=== PATIENT | female | born 1955 | race Caucasian/White ===

== ENCOUNTER → 2018-05-30 10:52 | Outpatient (CLI) | payer OTHER, SELFPAY ==
--- NOTE | 2018-05-30 10:54 | MM_ITS ---
MM Dig screening mamm BI w/CAD ORDERING PHYSICIAN : Robert Juarez MD PATIENT AGE: 62 years GENDER: Female COMPARISON: July 2014, March 2017, right mammogram August 2014 INDICATION: ITS.REASON: SCREENING. Routine screening. No hormones. No new complaints.. Family history. Mother breast cancer in her 60s. Paternal aunt with breast cancer. Half sister with breast cancer in her 50s TECHNIQUE: Standard CC and MLO images were obtained. R2 CAD reviewed. FINDINGS: Moderate Dense but fairly homogeneous tissue bilaterally similar to previous studies. No dominant mass nor suspicious calcifications. No significant interval change . CAD computer review highlights no focal areas of concern either. Bilateral follow-up in one year recommended and adequate ---IMPRESSION: ---- . Stable bilateral mammogram with no significant new findings. . No areas of concern Bilateral follow-up in one year recommended. BI-RADS Category: 2 Benign Finding(s) RECOMMENDED FOLLOW-UP: 1YR 1 YEAR FOLLOW-UP (A letter has been sent to the patient regarding results of the study.)
== END ==
PROVIDERS: PCP Internal Medicine Adolescent Medicine; Visit Provider Internal Medicine Adolescent Medicine
DX: Z12.31 Encounter for screening mammogram for malignant neoplasm of breast (principal)
CPT/HCPCS: 77067

== ENCOUNTER → 2018-06-03 14:46 | Outpatient (POV) | payer OTHER, SELFPAY | PROVIDERS: Visit Provider Dermatology | DX: Z00.00 Encounter for general adult medical examination without abnormal findings (principal) ==

== ENCOUNTER → 2019-06-01 11:01 | Outpatient (CLI) | payer OTHER, SELFPAY ==
--- NOTE | 2019-06-01 11:04 | MM_ITS ---
PROCEDURE: MM DIG SCREENING MAMM BI W/CAD Patient Age:63Y CLINICAL INDICATION: SCREENING no hormones. No new complaints. Positive family history.: Mother with breast cancer in her 60s. Paternal aunt with breast cancer ?Age. Half-sister with breast cancer in her 50s COMPARISON: DMSB DIG MAMM-SCREEN MICHELET from 07/26/2014 DMDXUAVR DIG MAMM-DX UNI ADD VIEWS-RT from 09/14/2014 DMSB DIG MAMM-SCREEN MICHELET W/CAD from 04/08/2017 [facility] MM Dig screening mamm BI w/CAD from 05/30/2018 TECHNIQUE: Standard CC and MLO images were obtained. R2 CAD reviewed. FINDINGS: Moderate breast density bilaterally No new dominant or suspicious mass. No suspicious calcifications Right breast: No new areas of significant can't concern. Mild asymmetric density towards superior right breast stable on MLO views dating back to 2014. CC view stable as well Left breast. No significant new areas of concern identified. Stable left breast. Bilateral follow-up 1 year recommended IMPRESSION: Stable bilateral mammogram. Bilateral follow-up 1 year recommended Moderate breast density BI-RAD Category: 2 Benign Finding(s) FOLLOW-UP: 1YR 1 Year Follow-up (A letter has been sent to the patient regarding results of the study.) Dictated by: Tin Chua MD 06/04/2019 09:39 Electronically signed by Tin Chua MD in [place] 06/04/2019 09:39
== END ==
PROVIDERS: PCP Internal Medicine Adolescent Medicine; Visit Provider Internal Medicine Adolescent Medicine
DX: Z12.31 Encounter for screening mammogram for malignant neoplasm of breast (principal)
CPT/HCPCS: 77067

== ENCOUNTER → 2020-04-20 12:02 | Outpatient (CLI) | payer MEDICARE, OTHER, SELFPAY ==
[2020-04-20 19:34] LABS: Coronavirus 19 IgG Antibody Negative (Negative); Coronavirus 19 IgM Antibody Negative (Negative)
== END ==
PROVIDERS: Visit Provider Internal Medicine Gastroenterology
DX: Z01.818 Encounter for other preprocedural examination (principal); K21.9 Gastro-esophageal reflux disease without esophagitis; Z13.810 Encounter for screening for upper gastrointestinal disorder
CPT/HCPCS: 36415; 86328

== ENCOUNTER 2020-04-22 08:54 | Day surgery (SDC) | payer MEDICARE, OTHER, SELFPAY ==
[2020-04-18 09:05] VITALS: BMI 20.3
[2020-04-22] VITALS (7 sets, daily range): BP systolic 128–150; BP diastolic 71–97; PULSE 57–86; RESP 16–18; TEMP 36.2–36.6; O2SAT 96–99
--- NOTE | 2020-04-22 10:20 | HMH.ANESCL ---
[facility] Anesthesia Checklist - Patient Identification Patient Identification: Arm Band, Verbal (Name & ) - Structural Data Admitted From: Home Planned Operative Procedure/s: EGD Consent for Planned Operative Procedure(s) Verified: Yes Verified Documents: Surgical Consent, History and Physical - NPO Status Verified Time NPO: 00:00 - Chart Verification Results Verified: None - Additional verifications Anesthesia Reactions: No Hx Blood Transfusions: No Blood Transfusion Reaction: No - Airway Assessment C-Spine Mobility Assessed: Yes TMJ Mobility Assessed: Yes Dentition: Good Dentition (missing teeth) - Neurological Assessment Level of Consciousness: Awake, Alert, Appropriate, Follows Commands Hx Seizures: No Numbness or tingling in extremities: No - Anesthesia Plan Anesthesia Risk discussed: Yes Anesthesia Plan: Verified ASA Class: II Anesthesia Type: MAC [facility] History I have reviewed the patient's past medical history: Yes Medical History: Reports:: Depression, Gastroesophageal Reflux Disease(GERD) Denies:: Cancer, Diabetes Mellitus Type 1, Diabetes Mellitus Type 2, Internal Pacemaker, Lung Disease, MRSA, Seizures *Have you ever received a pneumonia vaccine?: Yes *Have you received a flu vaccine this season?: Yes Other Medical History: Reports: Anemia. Denies: Blood Transfusion Reaction Anesthesia experience/problems:: None Laterality Cases: Bilateral: Tonsillectomy Other Surgeries: Yes: Tubal Ligation. No: Pacemaker Amputation: No Fractures: No - *Social History Last grade of school completed: Advanced degree Smoking Status: Never smoker Alcohol Intake: current Alcohol Intake Frequency:: 3 or more drinks per day Substance Use Type: denies use *Occupational Status:: unemployed Housing: house Household Members: spouse *Travel in the last 8 weeks: None - Psychiatric History Pschychiatric History:: Reports:: Anxiety Family Hx:: No significant family history
--- NOTE | 2020-04-22 10:42 | P.PCN_ITS ---
[facility] Procedure Note Procedure Note:: Upper Endoscopy Procedure Report: Esophagogastroduodenoscopy with cold biopsies and TTS balloon dilation Endoscopost: Jose A Hutson II, MD Referring Physician: Zenon Barrientos MD Date of Procedure: April 22, 2020 Equipment: Olympus GIF 180 standard upper endoscope Sedation: MAC sedation Indications: Mrs. Leavitt is a 64-year-old female with a long history of GERD. She did have a gastric ulcer in January 2005. She has been on Nexium OTC. She was experiencing worsened gastroesophageal reflux in early 2017. An upper endoscopy at that time did show grade C (LA classification) reflux esophagitis with peptic stricture. She had a large 6 cm hiatal hernia with Akbar's erosions. She did have hiatal hernia repair/Arash fundoplication robotically with Dr. Tico Olguin. She has continued to use omeprazole. She does have ongoing burning pyrosis and heartburn. She reports some early satiety and some dysphagia/globus sensation. She reports a retrosternal scalding feeling. Her colonoscopy in March 2010 showed left-sided diverticulosis. Procedure: Prior to the procedure, a history and physical exam was performed, and patient's medications and allergies were reviewed. The risks, benefits and alternatives of the sedation and procedure were discussed with the patient. All questions were answered and informed consent was obtained. The patient was brought to the procedure room. Patient identification and proposed procedure were verified by the physician and the nurse. The patient was placed in a left lateral decubitus position and the scope was passed under direct vision. Throughout the procedure, the patient's blood pressure, pulse, and oxygen saturations were monitored continuously. The upper GI endoscopy was accomplished without difficulty. The patient tolerated the procedure well. Findings: The scope was passed directly into the upper esophagus and advanced to the third portion of the duodenum. The post bulbar duodenum and duodenal bulb were normal with normal mucosa and conniventes. The scope was withdrawn through a normal duodenal bulb and pylorus into the stomach. There was bile reflux with linear reactive gastropathy of the antrum and body of the stomach. The remainder of the antrum, body and fundus of the stomach were grossly normal. Upon retroflexion there was evidence of prior fundoplication with existing or recurrent 3 cm hiatal hernia. The scope was then withdrawn into the esophagus. There was evidence of grade B?C reflux esophagitis. Cold biopsies were taken at the GE junction to rule out Kraus's esophagus. NBI was utilized. The entire esophagus was dilated to 60 Icelandic/20 mm with a TTS hydrostatic balloon. There was some resistance at the cricopharyngeus. The remainder of the esophageal mucosa was normal. Impression: 1. Grade B?C reflux esophagitis with possible short segment Kraus's and recurrent 3 cm hiatal hernia 2. Cricopharyngeal spasm with moderate esophageal dysmotility status post dilation to 20 mm 3. Bile reflux with linear reactive gastropathy Plan: I am going to increase PPI therapy to 40 mg. I would also recommend initiation of promotility therapy. I will discuss the findings with the patient and family. I will follow-up the biopsies.
--- NOTE | 2020-04-22 12:08 | SUR.PHASEII ---
1053-pts iv has infiltrated, dc'd iv and place 2x2 coban and warm blanket on swollen area
== END 2020-04-22 12:06 | disposition home or self-care (01) ==
LOC: OUTP 08:58
PROVIDERS: PCP Internal Medicine Adolescent Medicine; Visit Provider Internal Medicine Gastroenterology
PROC: 0DJ08ZZ Inspection of Upper Intestinal Tract, Via Natural or Artificial Opening Endoscopic (ICD-10-PCS; CPT 43235; principal; 2020-04-22 10:00)
DX: K22.70 Barrett's esophagus without dysplasia (principal); K22.4 Dyskinesia of esophagus; K21.9 Gastro-esophageal reflux disease without esophagitis; K31.9 Disease of stomach and duodenum, unspecified; K20.80 Other esophagitis without bleeding; K44.9 Diaphragmatic hernia without obstruction or gangrene; J39.2 Other diseases of pharynx; F32.9 Major depressive disorder, single episode, unspecified; D64.9 Anemia, unspecified
CPT/HCPCS: 43239; 43249; 88305; 88312; 88342; C1726

== ENCOUNTER → 2020-06-22 15:23 | Outpatient (CLI) | payer MEDICARE, OTHER, SELFPAY ==
--- NOTE | 2020-06-22 15:23 | MM_ITS ---
PROCEDURE: MM DIG SCREENING MAMM BI W/CAD Referring Doctor: Danis Silva Patient Age:64Y CLINICAL INDICATION: routine screening mammogram 64-year-old, no hormones, no new complaints family history; mother with breast cancer in her 60s, half sister breast cancer in her 50s, paternal aunt COMPARISON: MG DMSB DIG MAMM-SCREEN MICHELET from 07/26/2014 MG DMDXUAVR DIG MAMM-DX UNI ADD VIEWS-RT from 09/14/2014 MG DMSB DIG MAMM-SCREEN MICHELET W/CAD from 04/08/2017 MG [facility] MM Dig screening mamm BI w/CAD from 05/30/2018 MG MM DIG SCREENING MAMM BI W/CAD from 06/01/2019 TECHNIQUE: Standard CC and MLO images were obtained. R2 CAD reviewed. Bilateral digital breast tomosynthesis included. additional axillary cc view left breast findings: moderately dense breast tissue bilaterally most evident towards central breast and upper outer quadrant. mammography is of decreased sensitivity in areas of denser breast tissue. however we see no dominant nor new suspicious mass. No suspicious calcifications prior films are helpful in supporting stability bilaterally. bilateral follow-up 1 year recommended IMPRESSION: STABLE BILATERAL MAMMOGRAM. Moderately Dense Breast Tissue Upper Outer Quadrant Bilaterally Appears Stable The Bilateral Follow-up 1 Year Recommended BI-RAD Category: 2 Benign Finding(s) FOLLOW-UP: 1YR 1 Year Follow-up (A letter has been sent to the patient regarding results of the study.) Dictated by: Tin Chua MD 07/04/2020 08:55 Tin Chua MD in [place] 07/04/2020 08:55
== END ==
PROVIDERS: PCP Internal Medicine Adolescent Medicine; Visit Provider Nurse Practitioner Obstetrics & Gynecology
DX: Z12.31 Encounter for screening mammogram for malignant neoplasm of breast (principal)
CPT/HCPCS: 77063; 77067

== ENCOUNTER → 2020-07-13 09:56 | Outpatient (CLI) | payer MEDICARE, OTHER, SELFPAY ==
[2020-07-13 13:20] LABS: Coronavirus 19 IgG Antibody Negative (Negative); Coronavirus 19 IgM Antibody Negative (Negative)
== END ==
PROVIDERS: Visit Provider Internal Medicine Gastroenterology
DX: Z01.812 Encounter for preprocedural laboratory examination (principal); Z11.52 Encounter for screening for COVID-19; Z12.11 Encounter for screening for malignant neoplasm of colon; Z86.010 Personal history of colon polyps
CPT/HCPCS: 36415; 86328

== ENCOUNTER 2020-07-15 06:57 | Day surgery (SDC) | payer MEDICARE, OTHER, SELFPAY ==
[2020-07-08 10:36] VITALS: BMI 20.3
[2020-07-15] VITALS (7 sets, daily range): BP systolic 106–135; BP diastolic 42–80; PULSE 58–80; RESP 18; TEMP 36.1–36.8; O2SAT 96–99
--- NOTE | 2020-07-15 07:24 | P.PN_ITS ---
[facility] Anesthesia Checklist - Structural Data Admitted From: Home Planned Operative Procedure/s: colonoscopy Consent for Planned Operative Procedure(s) Verified: Yes - Additional verifications Anesthesia Reactions: No Hx Blood Transfusions: No Blood Transfusion Reaction: No - Airway Assessment C-Spine Mobility Assessed: Yes TMJ Mobility Assessed: Yes Dentition: Good Dentition - Neurological Assessment Level of Consciousness: Awake, Alert, Appropriate - Anesthesia Plan Anesthesia Risk discussed: Yes Anesthesia Plan: Verified ASA Class: I Anesthesia Type: MAC [facility] History I have reviewed the patient's past medical history: Yes Medical History: Reports:: Anxiety, Depression, Gastroesophageal Reflux Disease(GERD) Denies:: Cancer, Diabetes Mellitus Type 1, Diabetes Mellitus Type 2, Internal Pacemaker, Lung Disease, MRSA, Seizures *Have you ever received a pneumonia vaccine?: Yes *Have you received a flu vaccine this season?: Yes Other Medical History: Reports: Anemia. Denies: Blood Transfusion Reaction Anesthesia experience/problems:: none Laterality Cases: Bilateral: Tonsillectomy Other Surgeries: Yes: Tubal Ligation. No: Pacemaker Amputation: No Fractures: No - *Social History Last grade of school completed: Advanced degree Smoking Status: Never smoker Alcohol Intake: current Alcohol Intake Frequency:: 0-2 drinks per day Substance Use Type: denies use *Occupational Status:: unemployed Housing: house Household Members: spouse *Travel in the last 8 weeks: None - Psychiatric History Pschychiatric History:: Reports:: Anxiety, Depression Family Hx:: Cancer
--- NOTE | 2020-07-15 08:11 | HMH.PROC ---
[facility] Procedure Note Procedure Note:: Colonoscopy Procedure Report: Colonoscopy with cold snare polypectomy Endoscopist: Jose A Hutson II, MD Referring physician: Zenon Barrientos MD Date of Procedure: July 15, 2020 Equipment: Olympus 180 variable stiffness pediatric colonoscope Sedation: MAC sedation Indication: Mrs. Leavitt is a 64-year-old female who is here for follow-up screening/surveillance colonoscopy. Her colonoscopy in March 2010 showed no adenomatous polyps. She did have left-sided diverticulosis. The patient did recently have an EGD in March 2020 and had grade B?C reflux esophagitis with short segment Kraus's esophagus. She had a 3 cm hiatal hernia. The patient has been on omeprazole and domperidone. She also has been on the fiber bowel regimen (MiraLAX plus Konsyl). She is doing well and reports no abdominal pain, weight loss, change in her bowel habits or rectal bleeding. She reports no family history of colon cancer. Procedure: Prior to the procedure, a history and physical exam was performed, and patient's medications and allergies were reviewed. The risks, benefits and alternatives of the sedation and procedure were discussed with the patient. All questions were answered and informed consent was obtained. The patient was brought to the procedure room. Patient identification and proposed procedure were verified by the physician and the nurse. The patient was placed in a left lateral decubitus position and the scope was passed under direct vision. Throughout the procedure, the patient's blood pressure, pulse, and oxygen saturations were monitored continuously. The colonoscopy was accomplished without difficulty. The patient tolerated the procedure well. Findings: On digital rectal examination there was normal rectal tone. There were no external hemorrhoids. The colonoscope was introduced through the anal canal to the rectum and advanced to the cecum. The ileocecal valve and appendiceal orifice were identified. The scope was advanced a short distance into the ileum which appeared grossly normal. The scope was then withdrawn into the colon. There were 3 polyps (cecal x2 (3 and 4 mm) and ascending x1 (5 mm)) which were removed via cold snare polypectomy. The remainder of the cecum, ascending and transverse colon were normal. There were extensive scattered diverticuli throughout the descending and sigmoid colon (LEFT colon). The rectum itself was normal. Upon retroflexion within the rectum there were grade 1-2 internal hemorrhoids. The preparation was good throughout with Benavides Preparation Score of 8 out of 9. The cecal time was 12 minutes. Impression: 1. Diminutive colonic polyps x3 2. Extensive left-sided diverticulosis 3. Grade 1-2 internal hemorrhoids Plan: I will follow up the polyp pathology and recommend repeat colonoscopy again in 5-10 years based upon the polyp histology. I would encourage continuation of the fiber bowel regimen (combined MiraLAX plus Konsyl) on a long-term daily maintenance basis.
== END 2020-07-15 09:31 | disposition home or self-care (01) ==
LOC: OUTP 07:00
PROVIDERS: PCP Internal Medicine Adolescent Medicine; Visit Provider Internal Medicine Gastroenterology
PROC: 0DJD8ZZ Inspection of Lower Intestinal Tract, Via Natural or Artificial Opening Endoscopic (ICD-10-PCS; CPT 45378; principal; 2020-07-15 08:00)
DX: Z12.11 Encounter for screening for malignant neoplasm of colon (principal); K63.5 Polyp of colon; K57.30 Diverticulosis of large intestine without perforation or abscess without bleeding; K64.0 First degree hemorrhoids; F41.9 Anxiety disorder, unspecified; F32.9 Major depressive disorder, single episode, unspecified; K21.9 Gastro-esophageal reflux disease without esophagitis; Z90.49 Acquired absence of other specified parts of digestive tract; D64.9 Anemia, unspecified; Z79.899 Other long term (current) drug therapy
CPT/HCPCS: 45385; 88305

== ENCOUNTER → 2020-07-26 14:28 | Outpatient (POV) | payer MEDICARE, OTHER, SELFPAY | PROVIDERS: Visit Provider Dermatology | DX: Z00.00 Encounter for general adult medical examination without abnormal findings (principal) ==

== ENCOUNTER → 2021-05-12 09:35 | Outpatient (CLI) | payer MEDICARE, OTHER, SELFPAY ==
--- NOTE | 2021-05-12 09:38 | XR_ITS ---
PROCEDURE: XR DEXA AXIAL SKELETON CLINICAL HISTORY: POST-MENOPAUSAL COMPARISON: CR BONE3 BONE DENSITOMETRY(HIP:LT SPINE from 02/14/2016 FINDINGS: The right hip BMD is 0.612 with a T-score of -2.1. The left hip BMD is 0.614 with a T-score of -2.1. The lumbar spine BMD is 1.127 with a T-score of 0.7. Previously the lowest density was in the right femoral neck with T-score of -1.9 IMPRESSION: This patient is considered osteopenic according to the World Health Organization criteria. Bone density is between 10 and 25 percent below young normal. Fracture risk is moderate. Treatment is advised. Based on these results a follow-up exam is recommended in 2 year. Dictated by: Wang Navarro MD 05/12/2021 17:41 Wang Navarro MD in [place] 05/12/2021 17:41
== END ==
PROVIDERS: PCP Internal Medicine Adolescent Medicine; Visit Provider Internal Medicine Adolescent Medicine
DX: Z13.820 Encounter for screening for osteoporosis (principal); Z78.0 Asymptomatic menopausal state
CPT/HCPCS: 77080

== ENCOUNTER → 2021-06-27 11:12 | Outpatient (POV) | payer MEDICARE, OTHER, SELFPAY | PROVIDERS: Visit Provider Dermatology | DX: Z00.00 Encounter for general adult medical examination without abnormal findings (principal) ==

== ENCOUNTER → 2021-07-11 11:04 | Outpatient (POV) | payer MEDICARE, OTHER, SELFPAY | PROVIDERS: Visit Provider Dermatology | DX: Z00.00 Encounter for general adult medical examination without abnormal findings (principal) ==

== ENCOUNTER → 2021-07-12 10:29 | Outpatient (CLI) | payer MEDICARE, OTHER, SELFPAY ==
--- NOTE | 2021-07-12 10:34 | MM_ITS ---
PROCEDURE INFORMATION: Exam: MG Bilateral Screening 3D Mammography Exam date and time: 07/12/2021 10:34 AM Age: 65 years old Clinical indication: Screening mammogram TECHNIQUE: Imaging protocol: Bilateral Screening tomosynthesis and 2D mammography including computer-aided detection (CAD) when performed. COMPARISON: 1. MG MM DIG SCREENING MAMM BI W/CAD 06/22/2020 3:36 PM 2. MG MM DIG SCREENING MAMM BI W/CAD 06/01/2019 11:14 AM 3. MG [facility] MM Dig screening mamm BI w/CAD 05/30/2018 11:14 AM 4. MG DMSB DIG MAMM-SCREEN MICHELET W/CAD 04/08/2017 11:00 AM FINDINGS: MAMMOGRAPHY: Breast composition: The breast tissue is heterogeneously dense, which may obscure small masses. Mass: None. Architectural distortion: No new or suspicious architectural distortion. Calcifications: No new or suspicious calcifications are present Asymmetric density: No new or suspicious asymmetric density is present Skin thickening: None. Axillary adenopathy: None. IMPRESSION: No mammographic evidence of malignancy. Recommend annual screening mammography unless otherwise clinically indicated. ASSESSMENT: BI-RADS category 1: Negative
== END ==
PROVIDERS: PCP Internal Medicine Adolescent Medicine; Visit Provider Internal Medicine Adolescent Medicine
DX: Z12.31 Encounter for screening mammogram for malignant neoplasm of breast (principal)
CPT/HCPCS: 77063; 77067

== ENCOUNTER → 2021-10-24 11:07 | Outpatient (POV) | payer MEDICARE, OTHER, SELFPAY | PROVIDERS: Visit Provider Dermatology | DX: Z00.00 Encounter for general adult medical examination without abnormal findings (principal) ==

== ENCOUNTER → 2022-05-08 13:53 | Outpatient (POV) | payer MEDICARE, OTHER, SELFPAY | PROVIDERS: Visit Provider Dermatology | DX: Z00.00 Encounter for general adult medical examination without abnormal findings (principal) ==

== ENCOUNTER → 2022-08-08 10:17 | Outpatient (CLI) | payer MEDICARE, OTHER, SELFPAY ==
--- NOTE | 2022-08-08 10:20 | MM_ITS ---
PROCEDURE INFORMATION: Exam: MG Bilateral Screening 3D Mammography Exam date and time: 08/08/2022 10:16 AM Age: 66 years old Clinical indication: Screening examination. Her paternal aunt, mother, and half sister had breast cancer. TECHNIQUE: Imaging protocol: Bilateral Screening tomosynthesis and 2D mammography including computer-aided detection (CAD) when performed. COMPARISON: 1. MG MM DIG SCREENING MAMM BI W/CAD 07/12/2021 10:29 AM 2. MG MM DIG SCREENING MAMM BI W/CAD 06/22/2020 3:36 PM 3. MG MM DIG SCREENING MAMM BI W/CAD 06/01/2019 11:14 AM 4. MG [facility] MM Dig screening mamm BI w/CAD 05/30/2018 11:14 AM FINDINGS: MAMMOGRAPHY: Breast composition: The breasts are heterogeneously dense, which may obscure small masses. Mass: None. Architectural distortion: None. Calcifications: No suspicious calcifications. Asymmetric density: None. Skin thickening: None. Axillary adenopathy: None. IMPRESSION: No mammographic evidence of malignancy. Annual screening is recommended unless otherwise clinically indicated. ASSESSMENT: BI-RADS Category 1: Negative
== END ==
PROVIDERS: PCP Internal Medicine Adolescent Medicine; Visit Provider Internal Medicine Adolescent Medicine
DX: Z12.31 Encounter for screening mammogram for malignant neoplasm of breast (principal)
CPT/HCPCS: 77063; 77067

== ENCOUNTER 2023-06-25 14:29 | Outpatient (POV) | payer MEDICARE, OTHER, SELFPAY | END 2023-06-25 23:59 | disposition home or self-care (01) | LOC: SC 14:34 | PROVIDERS: PCP Internal Medicine Adolescent Medicine; Visit Provider Dermatology | DX: Z00.00 Encounter for general adult medical examination without abnormal findings (principal) ==

== ENCOUNTER 2023-07-26 02:17 | Emergency (ER) | payer MEDICARE, OTHER, SELFPAY ==
--- NOTE | 2023-07-26 02:16 | CT_ITS ---
PROCEDURE INFORMATION: Exam: CTA Chest With Contrast Exam date and time: 07/26/2023 3:04 AM Age: 67 years old Clinical indication: Injury or trauma; Additional info: Fall, chest pain TECHNIQUE: Imaging protocol: Computed tomographic angiography of the chest with contrast. Exam focused on the arteries. 3D rendering (Not supervised by radiologist): MIP and/or 3D reconstructed images were created by the technologist. Radiation optimization: All CT scans at this facility use at least one of these dose optimization techniques: automated exposure control; mA and/or kV adjustment per patient size (includes targeted exams where dose is matched to clinical indication); or iterative reconstruction. Contrast material: ISOVUE; Contrast volume: 75 ml; Contrast route: INTRAVENOUS (IV); COMPARISON: 1. CT ANGIO NECK 07/26/2023 2:[address] THORACIC SPINE WO CON 07/26/2023 2:[address] CERVICAL SPINE WO CON 07/26/2023 2:47 AM FINDINGS: Pulmonary arteries: Normal. No pulmonary emboli. Aorta: There is atherosclerotic disease of the visualized aorta and its major branch vessels. Lungs: Scattered areas of bronchial wall thickening which are likely chronic inflammatory. A few areas of subpleural reticulation are noted, nonspecific. There is scattered ground-glass opacity which could reflect air trapping. Pleural spaces: Unremarkable. No pneumothorax. No pleural effusion. Heart: Unremarkable. No cardiomegaly. No pericardial effusion. Mediastinal space: The esophagus is somewhat patulous. Lymph nodes: There are mildly prominent mediastinal lymph nodes which are nonenlarged. Intraperitoneal space: Please see the dedicated interpretation of abdomen and pelvis for findings in that region. Bones/joints: Please see the dedicated interpretation of the spine for findings in that region. There is diffuse degenerative disease of the visualized osseous structures. Soft tissues: Unremarkable. IMPRESSION: 1. No acute traumatic injury is identified. 2. Please see the dedicated interpretation of abdomen and pelvis for findings in that region.
--- NOTE | 2023-07-26 02:16 | XR_ITS ---
PROCEDURE INFORMATION: Exam: XR Left Shoulder Exam date and time: 07/26/2023 2:31 AM Age: 67 years old Clinical indication: Pain; Shoulder; Left; Additional info: Fall pain TECHNIQUE: Imaging protocol: Radiologic exam of the left shoulder. Views: 2 or more views. COMPARISON: No relevant prior studies available. FINDINGS: Bones/joints: Unremarkable visualized bones and joints. Soft tissues: Unremarkable. IMPRESSION: Unremarkable visualized bones and joints.
--- NOTE | 2023-07-26 02:16 | XR_ITS ---
PROCEDURE INFORMATION: Exam: XR Right Shoulder Exam date and time: 07/26/2023 2:31 AM Age: 67 years old Clinical indication: Pain; Shoulder; Right; Additional info: Fall pain TECHNIQUE: Imaging protocol: Radiologic exam of the right shoulder. Views: 2 or more views. COMPARISON: No relevant prior studies available. FINDINGS: Bones/joints: Unremarkable visualized bones and joints. Soft tissues: Unremarkable. IMPRESSION: Unremarkable visualized bones and joints.
[2023-07-26 02:17] VITALS: BP 103/57; PULSE 64; RESP 20; TEMP 36.6; O2SAT 97; BMI 23.6
--- NOTE | 2023-07-26 02:17 | CT_ITS ---
PROCEDURE INFORMATION: Exam: CTA Abdomen and Pelvis With Contrast Exam date and time: 07/26/2023 3:04 AM Age: 67 years old Clinical indication: Injury or trauma; Additional info: Fall abd pain TECHNIQUE: Imaging protocol: Computed tomographic angiography of the abdomen and pelvis with contrast. Exam focused on the arteries. 3D rendering (Not supervised by radiologist): MIP and/or 3D reconstructed images were created by the technologist. Radiation optimization: All CT scans at this facility use at least one of these dose optimization techniques: automated exposure control; mA and/or kV adjustment per patient size (includes targeted exams where dose is matched to clinical indication); or iterative reconstruction. Contrast material: ISOVUE; Contrast volume: 75 ml; Contrast route: INTRAVENOUS (IV); COMPARISON: CT ANGIO CHEST 07/26/2023 3:04 AM FINDINGS: Aorta: The abdominal aorta is normal in course and caliber without evidence for hydronephrosis. Celiac trunk and mesenteric arteries: There is narrowing of the origin of the celiac with minimum luminal dimension of 3 mm due to ligamentous impingement. Remaining mesenteric arteries are widely patent. Renal arteries: No occlusion or significant stenosis. Right iliac arteries: No occlusion or significant stenosis. Left iliac arteries: No occlusion or significant stenosis. Liver: No mass. Gallbladder and bile ducts: The gallbladder is markedly distended. There is a rim calcified stone noted in the dependent portion of the fundus. Pancreas: The main pancreatic duct is dilated up to 10 mm in the head. Suggest MRI of the abdomen with and without intravenous contrast with MRCP to further assess. Spleen: Unremarkable. No splenomegaly. Adrenal glands: Unremarkable. No mass. Kidneys and ureters: The kidneys enhance and excrete contrast symmetrically and there is no hydronephrosis. Stomach and bowel: There is a small hiatal hernia containing a portion of the stomach. There is no evidence for small bowel obstruction. Fairly extensive diverticulosis noted worst in the descending and sigmoid colon. Appendix: No evidence of appendicitis. Intraperitoneal space: Unremarkable. No free air. No significant fluid collection. Lymph nodes: Unremarkable. No enlarged lymph nodes. Urinary bladder: The urinary bladder is partially contracted. Reproductive: There is mild central low-density within the uterus. Suggest nonemergent pelvic ultrasound to further assess. Bones/joints: Degenerative changes are noted in the bones. There is a biconvex scoliosis of the lumbar spine Soft tissues: There is a small fat containing right inguinal hernia. IMPRESSION: No evidence for acute trauma. 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 Small hiatal hernia. Colonic diverticulosis. Prominent main pancreatic duct in the head. Suggest MRI of the abdomen with and without intravenous contrast and MRCP to further assess. Cholelithiasis and distended gallbladder. Please correlate clinically, right upper quadrant ultrasound may be performed as indicated to further assess. Mild central low-density within the uterus may be further assessed with nonemergent pelvic ultrasound as indicated. Small fat containing right inguinal hernia.
--- NOTE | 2023-07-26 02:17 | CT_ITS ---
PROCEDURE INFORMATION: Exam: CT Cervical Spine Without Contrast Exam date and time: 07/26/2023 2:47 AM Age: 67 years old Clinical indication: Neck pain; Additional info: Neck pain, hyperextension, abnormal sensation arms TECHNIQUE: Imaging protocol: Computed tomography of the cervical spine without contrast. Radiation optimization: All CT scans at this facility use at least one of these dose optimization techniques: automated exposure control; mA and/or kV adjustment per patient size (includes targeted exams where dose is matched to clinical indication); or iterative reconstruction. COMPARISON: CT HEAD/BRAIN WO CON 07/26/2023 2:45 AM FINDINGS: Bones/joints: Reversal of normal curvature of the spine with degenerative spondylolisthesis. No evidence of acute compression fracture or deformity in the cervical spine. No acute fracture involving the vertebral bodies or their posterior elements. Discs/Spinal canal/Neural foramina: Moderately advanced chronic degenerative changes in the visualized cervical spine. Lungs: Scarring and pleural thickening in the lung apices. Circumferential wall thickening of the cervical and visualized thoracic esophagus suggestive of reflux disease/esophagitis. Soft tissues: Pre-and paravertebral soft tissues are grossly normal. IMPRESSION: Chronic degenerative changes without an acute bony cervical spine injury or abnormality. COMMENTS: Recommend followup with MRI if clinically suspicion for discoligamentous/soft tissue or cord abnormality.
--- NOTE | 2023-07-26 02:19 | CT_ITS ---
PROCEDURE INFORMATION: Exam: CTA Head With Contrast, Arteriography Exam date and time: 07/26/2023 2:59 AM Age: 67 years old Clinical indication: Injury or trauma; Additional info: Fall TECHNIQUE: Imaging protocol: Computed tomographic angiography of the head with contrast. Exam focused on the arteries. 3D rendering (Not supervised by radiologist): MIP and/or 3D reconstructed images were created by the technologist. Radiation optimization: All CT scans at this facility use at least one of these dose optimization techniques: automated exposure control; mA and/or kV adjustment per patient size (includes targeted exams where dose is matched to clinical indication); or iterative reconstruction. Contrast material: ISOVUE; Contrast volume: 75 ml; Contrast route: INTRAVENOUS (IV); COMPARISON: CT HEAD/BRAIN WO CON 07/26/2023 2:45 AM FINDINGS: ANTERIOR CIRCULATION: Right internal carotid artery: Intracranial segment is patent with no significant stenosis. No aneurysm. Right middle cerebral artery: No occlusion or significant stenosis. No aneurysm. Right anterior cerebral artery: No occlusion or significant stenosis. No aneurysm. Left internal carotid artery: Intracranial segment is patent with no significant stenosis. No aneurysm. Left middle cerebral artery: No occlusion or significant stenosis. No aneurysm. Left anterior cerebral artery: No occlusion or significant stenosis. No aneurysm. POSTERIOR CIRCULATION: Right vertebral artery: No occlusion or significant stenosis. No aneurysm. Left vertebral artery: No occlusion or significant stenosis. No aneurysm. Basilar artery: No occlusion or significant stenosis. No aneurysm. Right posterior cerebral artery: No occlusion or significant stenosis. No aneurysm. Left posterior cerebral artery: No occlusion or significant stenosis. No aneurysm. Brain: No definite mass, mass effect, or midline shift. Cerebral ventricles: No ventriculomegaly. Orbital cavities: The patient is post bilateral cataract surgery Paranasal sinuses: There is a small amount of layering fluid in the right maxillary antrum. Bones/joints: Cervical spondylosis is noted. Soft tissues: Unremarkable. IMPRESSION: No intracranial large vessel occlusion.
--- NOTE | 2023-07-26 02:19 | CT_ITS ---
PROCEDURE INFORMATION: Exam: CT Head Without Contrast Exam date and time: 07/26/2023 2:45 AM Age: 67 years old Clinical indication: Injury or trauma; Additional info: Fall TECHNIQUE: Imaging protocol: Computed tomography of the head without contrast. Radiation optimization: All CT scans at this facility use at least one of these dose optimization techniques: automated exposure control; mA and/or kV adjustment per patient size (includes targeted exams where dose is matched to clinical indication); or iterative reconstruction. COMPARISON: No relevant prior studies available. FINDINGS: Limitations: The patient is wearing earrings with associated streak artifact that mildly limits the study. Brain: The brain parenchyma appears unremarkable, with no signs of acute intracranial hemorrhage or significant mass effect. There is hypodensity in the subcortical and periventricular white matter which is technically nonspecific but most often related to chronic microvascular disease. Cerebral ventricles: Mild ventricular enlargement consistent with age-related cerebral atrophy is noted. Paranasal sinuses: Paranasal sinuses show age-appropriate mucosal thickening. Mastoid air cells: Visualized mastoid air cells are well aerated. Bones/joints: There are no skull fractures or bony lesions. Soft tissues: Unremarkable. IMPRESSION: Presumably age-related and chronic changes without acute intracranial abnormality.
--- NOTE | 2023-07-26 02:19 | CT_ITS ---
PROCEDURE INFORMATION: Exam: CT Thoracic Spine Without Contrast Exam date and time: 07/26/2023 2:50 AM Age: 67 years old Clinical indication: Pain in thoracic spine; Additional info: Fall, back pain TECHNIQUE: Imaging protocol: Computed tomography of the thoracic spine without contrast. Radiation optimization: All CT scans at this facility use at least one of these dose optimization techniques: automated exposure control; mA and/or kV adjustment per patient size (includes targeted exams where dose is matched to clinical indication); or iterative reconstruction. COMPARISON: No relevant prior studies available. FINDINGS: Normal curvature of the spine, alignment of the vertebral bodies is normal. T2 and T4 vertebral body hemangiomas. . Vertebral body height is normal without compression fracture or deformity. No evidence of a displaced fracture involving the vertebral bodies or their posterior elements. . Moderate chronic degenerative changes in the visualized spine. Pre-and paravertebral soft tissues are grossly normal. . Dependent atelectasis in the lung bases, groundglass opacities, scarring and peribronchial thickening with narrowing of the distal airways. Visualized aorta is unremarkable. . Moderate hiatal hernia with wall thickening of the distal thoracic esophagus suggestive of esophagitis/reflux. IMPRESSION: 1. Chronic degenerative changes without acute bony abnormality or injury. 2. Hiatal hernia with findings suspicious for esophagitis/reflux, recommend followup as clinically indicated. 3. Other nonemergent/incidental findings as described. COMMENT: Recommend followup with MRI if clinically suspicion for discoligamentous/soft tissue or cord abnormality.
--- NOTE | 2023-07-26 02:19 | CT_ITS ---
PROCEDURE INFORMATION: Exam: CT Lumbar Spine Without Contrast Exam date and time: 07/26/2023 2:52 AM Age: 67 years old Clinical indication: Injury or trauma; Additional info: Fall TECHNIQUE: Imaging protocol: Computed tomography of the lumbar spine without contrast. Radiation optimization: All CT scans at this facility use at least one of these dose optimization techniques: automated exposure control; mA and/or kV adjustment per patient size (includes targeted exams where dose is matched to clinical indication); or iterative reconstruction. COMPARISON: No relevant prior studies available. FINDINGS: Degenerative kyphoscoliosis and spondylosis of the lumbar spine. . Vertebral body height is normal without compression fracture or deformity. No evidence of a pars defect or pars fracture in the lumbar spine. . Advanced chronic degenerative changes in the spine with spondylosis deformans. Chronic degenerative changes in the sacroiliac joints. . Atrophy with fatty replacement of the muscles. Visualized aorta is unremarkable. . Hydropic distension of the gallbladder with dependent gallstones. . Moderate hiatal hernia with wall thickening of the distal thoracic esophagus suggestive of esophagitis/reflux. Prominent air and fluid-filled loops of small/large bowel likely within normal limits versus mild enterocolitis/ileus. IMPRESSION: 1. Advanced chronic degenerative changes in the spine with spondylosis deformans. 2. Hiatal hernia with findings suspicious for esophagitis/reflux, recommend followup as clinically indicated. 3. Prominent air and fluid-filled loops of small/large bowel likely within normal limits versus mild enterocolitis/ileus. 4. Hydropic distension of the gallbladder with gallstone. COMMENTS: Recommend followup with MRI if clinically suspicion for discoligamentous/soft tissue or cord abnormality.
--- NOTE | 2023-07-26 02:20 | CT_ITS ---
PROCEDURE INFORMATION: Exam: CTA Neck With Contrast Exam date and time: 07/26/2023 2:59 AM Age: 67 years old Clinical indication: Injury or trauma; Additional info: Fall neck pain TECHNIQUE: Imaging protocol: Computed tomographic angiography of the neck with contrast. Exam focused on the cervical segments of the vasculature. 3D rendering (Not supervised by radiologist): MIP and/or 3D reconstructed images were created by the technologist. Radiation optimization: All CT scans at this facility use at least one of these dose optimization techniques: automated exposure control; mA and/or kV adjustment per patient size (includes targeted exams where dose is matched to clinical indication); or iterative reconstruction. Contrast material: ISOVUE; Contrast volume: 75 ml; Contrast route: INTRAVENOUS (IV); COMPARISON: CT CERVICAL SPINE WO CON 07/26/2023 2:47 AM FINDINGS: Right common carotid artery: No stenosis. No dissection or occlusion. Right internal carotid artery: No stenosis of the extracranial segment. No dissection or occlusion. Right external carotid artery: No occlusion or stenosis of the origin. Left common carotid artery: No stenosis. No dissection or occlusion. Left internal carotid artery: No stenosis of the extracranial segment. No dissection or occlusion. Left external carotid artery: No occlusion or stenosis of the origin. Right vertebral artery: No stenosis. No dissection or occlusion. Left vertebral artery: No stenosis. No dissection or occlusion. Lymph nodes: Calcific mediastinal lymphadenopathy is incidentally noted. Soft tissues: Normal. No significant soft tissue swelling. Bones/joints: Cervical spondylosis is noted. IMPRESSION: No evidence for cervical arterial stenosis or dissection. REFERENCES: NASCET CRITERIA. The degree of stenosis in the cervical segment of the internal carotid artery is based on NASCET criteria. Normal is no stenosis. Mild is less than 50% stenosis. Moderate is 50-69% stenosis. Severe is 70% to 99% stenosis. Total occlusion is no detectable patent lumen.
--- NOTE | 2023-07-26 02:21 | ECG_ITS ---
APPROVED REPORT Exam: Resting ECG HR:64 bpm ECG Measurements Heart Rate 64 AXES RI 163 P 33 QRSd 84 QRS 23 QT 405 T -38 QTc 415 Conclusion SINUS RHYTHM WITH SINUS ARRHYTHMIA MODERATE T-WAVE ABNORMALITY, CONSIDER INFERIOR ISCHEMIA [-0.1+ mV T-WAVE IN II/aVF] ABNORMAL ECG INTERPRETATION BASED ON A DEFAULT AGE OF 40 YEARS UNCONFIRMED REPORT Electronically signed by : Robert Juarez MD 07/26/2023 08:15:36
--- NOTE | 2023-07-26 02:28 | [facility].EDGENADL ---
Discharge Plan Disposition Patient Disposition: Xfer Other Chief Complaint: Fall Prescriptions Prescriptions: No Action venlafaxine 150 mg capsule,extended release 24hr 150 mg PO DAILY Patient Comments: TAKE 1 CAPSULE BY MOUTH EVERY DAY omeprazole 40 mg capsule,delayed release(DR/EC) 40 mg PO DAILY Patient Comments: TAKE 1 CAPSULE BY MOUTH EVERY DAY trazodone 100 mg tablet 100 mg PO HS Patient Comments: TAKE 1 TABLET BY MOUTH EVERY NIGHT jepycwsjji-[id number] [id number] mg capsule 1 cap PO Q4HP PRN (Reason: Migraine Headache) Patient Comments: TAKE 1 CAPSULE BY MOUTH EVERY 4 HOURS FOR 5 DAYS Referrals Follow up/Referrals: Robert Juarez MD [Primary Care Provider] - See instructions Clinical Impressions Clinical Impression: Facial laceration, Diarrhea Central cord syndrome Qualifiers: Encounter type: initial encounter Qualified Code(s): S14.129A - Central cord syndrome at unspecified level of cervical spinal cord, initial encounter Head injury Qualifiers: Encounter type: initial encounter Qualified Code(s): S09.90XA - Unspecified injury of head, initial encounter Stand Alone Forms Stand Alone Forms: Transfer Record - ED Discharge ED Provider: Trell Fields General Adult HPI General Chief complaint: Fall Stated complaint: fall Time Seen by Provider: 07/26/23 02:20 Mode of Arrival: EMS Source of Information: Patient and EMS Limitations: No Limitations Description of Symptoms (Recalled from ER Triage Doc. by RN): 67 F presents via EMS from home s/p fall from the toilet. Patient is a/o x3 on arrival, GCS 15 and reports getting the stomach bug this evening, but has felt fine otherwise. Patient reports passing out on the toilet and falling. Skin tears noted to right avitia, right knee, and right eyebrow. C-collar in place and on long board when arrived. Patient reports significant bilateral hand pain and tingling. History of Present Illness HPI narrative: 67-year-old female without significant past medical history presents with 67-year-old female without significant past medical history presents after a fall. She reports that she developed a stomach bug and has been having significant diarrhea since yesterday. She was on the toilet tonight when she slipped and fell, striking her face against a bathtub and losing consciousness. She is unsure exactly how long she was out. She reports that she was laying on the ground with her arms pinned behind her, she was unable to get up. EMS was called. On arrival patient was mildly hypotensive but responded to fluids. She reports pain on her face, pain in her bilateral shoulders and neck. Patient also reports abnormal sensation, burning sensation of the bilateral hands. Related Data Home Medications Medication Instructions Recorded Confirmed butalbital 50 mg-acetaminophen 300 1 cap PO Q4HP PRN Migraine Headache 07/26/23 07/26/23 mg-caffeine 40 mg-codeine 30 mg cap omeprazole 40 mg capsule,delayed 40 mg PO DAILY 07/26/23 07/26/23 release trazodone 100 mg tablet 100 mg PO HS 07/26/23 07/26/23 venlafaxine 150 mg 150 mg PO DAILY 07/26/23 07/26/23 capsule,extended release 24 hr Allergies Allergy/AdvReac Type Severity Reaction Status Date / Time No Known Allergies Allergy Verified 10/31/21 13:59 [facility] Disclaimer: The information contained in this section may have been updated after the patient was seen, as this information can be updated by other users. Social History (Updated 07/26/23 @ 02:30 by Cecil Sandhu RN) Smoking Status: Never smoker alcohol intake: current substance use type: denies use current occupational status: unemployed and retired Travel in the last 8 weeks: None household members: spouse housing: house current occupational exposures/hazards: No caffeine: Yes ROS Obtained: Yes All systems reviewed & no additional complaints except as documented Physical Exam General General appearance: alert and in no apparent distress Head Head exam: other (Hematoma and abrasion to the right eyebrow) Eye Eye exam: Present PERRL, EOMI and periorbital swelling; Absent conjunctival injection ENT ENT exam: Present normal oropharynx and normal external ear exam Neck Neck exam: Present other (Mild tenderness, c-collar in place) Chest Chest inspection: Present symmetric chest wall rise and other (Bilateral mastectomy); Absent tenderness Respiratory Respiratory exam: Present normal lung sounds bilaterally; Absent respiratory distress Cardiovascular Cardiovascular exam: Present regular rate and normal rhythm Abdominal Exam Abdominal exam: Present soft; Absent distention, tenderness or guarding Extremities Exam Extremities exam: Present other (Skin tear/abrasion over the right knee and tib-fib, no bony tenderness to palpation. Tenderness to palpation of the bilateral shoulders and pain with range of motion.) Back Exam Back exam: Present normal inspection and tenderness Neurological Exam Neurological exam: Present alert, oriented X3 and other (Hyperesthesia to the bilateral upper extremity, intact strength, no numbness) Psychiatric Psychiatric exam: Present normal affect and normal mood Skin Skin exam: Present warm, dry and normal color Lymphatic Lymphatic Findings: no adenopathy Medical Decision Making Medical Records Medical records reviewed: Yes I reviewed the patient's medical records. Niranjan Inquiry Pt receiving controlled substance: No Niranjan was queried for this patient: No Vital Signs: 07/26/23 02:17 07/26/23 03:15 Temperature 97.8 F Temperature Source Oral Pulse Rate 69 Pulse Rate [Left] 64 Respiratory Rate 20 17 Blood Pressure 124/73 Blood Pressure [Right Arm] 103/57 L Blood Pressure Mean [Right Arm] 72 Blood Pressure Source [Right Arm] Automatic Cuff Blood Pressure Position [Right Arm] Supine 02 Sat by Pulse Oximetry 97 97 Oxygen Delivery Method Room Air Room Air Lab Data Lab results reviewed: Yes I reviewed the patient's lab results. Lab Results 07/26/23 02:18: WBC 8.8, RBC 4.53, Hgb 11.4 L, Hct 35.5 L, MCV 78.5 L, MCH 25.3 L, MCHC 32.2, RDW 15.1, Plt Count 312, MPV 7.1 L, Neut % (Auto) 90.7 H, Lymph % (Auto) 5.4 L, Webster % (Auto) 2.5, Eos % (Auto) 1.0, Baso % (Auto) 0.3, Neut # (Auto) 8.0 H, Lymph # (Auto) 0.5 L, Webster # (Auto) 0.2, Eos # (Auto) 0.1, Baso # (Auto) 0.0, Total Counted 100, Neutrophils % (Manual) 90 H, Lymphocytes % (Manual) 7 L, Monocytes % (Manual) 3, Platelet Estimate Normal, Microcytosis 2+, PT 11.1, INR 1.03, Sodium 133 L, Potassium 3.7, Chloride 102, Carbon Dioxide 27, Anion Gap 7.7, BUN 25 H, Creatinine 0.70, Estimated Creat Clear 51, Estimated GFR 83, Est GFR ( Amer) 101, Glucose 122 H, Calcium 8.0 L, Total Bilirubin 0.4, AST 31, ALT 20, Alkaline Phosphatase 56, Total Creatine Kinase 149 H, Troponin I < 0.01, Total Protein 6.1 L, Albumin 3.5, Globulin 2.6, Albumin/Globulin Ratio 1.3 07/26/23 02:18 07/26/23 02:18 Orders (Tests/Meds): ED MEDICATIONS Discontinued Medications Generic Name Dose Route Start Last Admin Trade Name Freq PRN Reason Stop Dose Admin Acetaminophen 1,000 mg 07/26/23 02:43 07/26/23 02:44 Acetaminophen 500mg Tab PO 07/26/23 02:44 1,000 mg ONCE ONE Administration Sodium Chloride 1,000 mls @ 999 mls/hr 07/26/23 02:30 07/26/23 02:42 Sod Chlor 0.9% 1000ml Bag IV 07/26/23 03:30 999 mls/hr .Q1H1M UMBERTO Administration Iopamidol 150 ml 07/26/23 03:21 07/26/23 03:21 Iopamidol-370 (76%);100ml Bottle IV 07/26/23 03:22 150 ml ONCE ONE Administration Morphine Sulfate 4 mg 07/26/23 03:15 07/26/23 03:16 Morphine 4mg/Ml Syringe IV 07/26/23 03:16 4 mg ONCE ONE Administration Sodium Chloride 10 ml 07/26/23 03:21 07/26/23 03:21 Sodium Chloride 0.9% 10ml Syr (Rad Only) IV 07/26/23 03:22 10 ml ONCE ONE Administration Tetanus/Reduced Diphtheria/Acell Pertussis 0.5 ml 07/26/23 03:45 07/26/23 03:58 Tet/Diphth/Pert-Adult 0.5ml Syringe IM 07/26/23 03:46 0.5 ml .ONCE ONE Administration ORDERS Category Date Time Status CT angio abdomen pelvis Stat Cat Scan 07/26/23 02:[address] angio head Stat Cat Scan 07/26/23 02:[address] angio neck Stat Cat Scan 07/26/23 02:[address] cervical spine wo con Stat Cat Scan 07/26/23 02:[address] head/brain wo con Stat Cat Scan 07/26/23 02:[address] lumbar spine wo con Stat Cat Scan 07/26/23 02:[address] thoracic spine wo con Stat Cat Scan 07/26/23 02:19 Completed CTA Chest [CT angio chest - dissection] Stat Cat Scan 07/26/23 02:16 Completed Hand XR left minimum 3 views [XR hand LT min 3V] Stat Exams 07/26/23 03:43 Completed Hand XR right minimum 3 views [XR hand RT min 3V] Stat Exams 07/26/23 03:43 Completed Shoulder XR left minimum 2 views [XR shoulder LT min 2V Exams 07/26/23 02:16 Completed ] Stat Shoulder XR right miminum 2 views [XR shoulder RT min Exams 07/26/23 02:16 Completed 2V] Stat CBC w/Auto Diff [Complete Blood Count Auto Diff] Stat Lab 07/26/23 02:18 Completed CK [Creatine Kinase] Stat Lab 07/26/23 02:18 Completed CMP [Comprehensive Metabolic Panel] Stat Lab 07/26/23 02:18 Completed INR [Prothrombin Time INR] Stat Lab 07/26/23 02:18 Completed Troponin I Q3H Lab 07/26/23 02:18 Completed Troponin I Q3H Lab 07/26/23 05:30 Ordered ECG initial Besson Routine Y 07/26/23 02:21 Completed ECG Data Tracing #1: I reviewed this ECG and interpreted as documented below: Sinus rhythm, rate of 64, T wave inversions and small QRS voltage in the inferior leads, no concerning ST changes ECG initial impression date: 07/26/23 ECG initial impression time: 02:22 Medical Decision Narrative: 67-year-old female without significant past medical history presents after a fall from standing with loss of consciousness with facial trauma, bilateral upper extremity paresthesias, neck pain. History was obtained via conversation with patient, EMS. On arrival, patient is afebrile, hemodynamically stable, alert and oriented satting appropriately on room air, moving all extremities spontaneously. Full physical exam performed and significant for findings as above including hyperesthesia of the bilateral upper extremities, neck pain, abrasions and facial trauma. Patient in c-collar. Differential includes but is not limited to intracranial trauma, spine trauma, extremity trauma, intrathoracic/intra-abdominal trauma. Given apparent hyperextension injury and bilateral upper extremity paresthesias, concern for central cord syndrome Patient was given 1 L fluid for symptomatic management and correction of underlying abnormalities. Workup initiated including full trauma scans including CTAs of the head neck chest abdomen pelvis, full spines, Noncon head, normal labs. On re-evaluation, patient [remains afebrile, HD stable.] Laboratory workup independently interpreted by me and significant for mild hypocalcemia minimally elevated CK, mild anemia. Imaging independently interpreted by me and significant for no acute intracranial intrathoracic intra-abdominal or spinal trauma. Does show marked gallbladder distention and prominent pancreatic duct. Also shows fluid-filled small bowel consistent with diarrheal illness. Radiographs show no acute fractures. See radiology read for full review of final results. The patient facial laceration was irrigated and repaired at bedside by me. Given patient history, exam and workup, patient's presentation most likely represents central cord syndrome in the setting of fall with hyperextension injury and cape-like distribution of abnormal sensation in the bilateral upper extremities. Extensive discussion was had with patient and family regarding her symptoms and her CT findings. She was instructed to follow-up regarding the findings in her abdomen and pelvis. Interactive discussion had with the [facility] transfer center and Dr. Lake who accepted the patient for transfer to [facility]. Procedures Risk/Benefits of Procedure(s) Were Explained: Yes Laceration Laceration 1: Site: face Side (If applicable): right Size (cm): 1 Description: linear Depth: simple, single layer Pre-repair: wound explored, irrigated extensively and deep structures intact Skin layer closed with: Dermabond Critical Care Critical Care Time Critical Care Time: Yes Attestation: On 07/26/23, the high probability of a clinically significant, sudden or life threatening deterioration of the following system(s) neurologically required my full and direct attention, intervention and personal management. The time I documented below is in addition to time spent performing reported procedures but includes the following listed in this critical care notation. Total Time Total Critical Care Time: 42
[2023-07-26 02:32] LABS: Basophils % 0.3 % (0.1-2.0); Eosinophils # 0.1 K/mm3 (0.0-0.4); Hematocrit 35.5 % (37.0-47.0); Hemoglobin 11.4 g/dL (12.2-16.2); Lymphocytes # 0.5 K/mm3 (0.7-4.5); Lymphocytes % 5.4 % (10-50); Mean Corpuscular HGB Conc 32.2 g/dL (31.8-35.4); Mean Corpuscular Hemoglobin 25.3 pg (27.0-31.2); Mean Corpuscular Volume 78.5 fl (81-99); Mean Platelet Volume 7.1 fl (7.4-10.4); Monocytes # 0.2 K/mm3 (0.1-1.0); Monocytes % 2.5 % (1.7-9.3); Neutrophils % 90.7 % (37.0-80.0); Platelet Count 312 K/mm3 (142-424); Red Blood Count 4.53 M/mm3 (4.20-5.40); Red Cell Distribution Width 15.1 % (11.5-17.5); White Blood Count 8.8 K/mm3 (4.8-10.8)
[2023-07-26 02:36] LABS: MANUAL DIFFERENTIAL MANUAL DIFFERENTIAL (MANUAL DIFF)
[2023-07-26 02:37] LABS: Alanine Aminotransferase 20 U/L (12-78); Albumin Level 3.5 g/dl (3.5-5.0); Albumin/Globulin Ratio 1.3 (1.1-1.8); Alkaline Phosphatase 56 U/L (38-126); Aspartate Amino Transferase 31 U/L (14-36); Bilirubin,Total 0.4 mg/dl (0.2-1.3); Blood Urea Nitrogen 25 mg/dl (7-17); Carbon Dioxide 27 mmol/L (22.0-30.0); Chloride 102 mmol/L (98-107); Creatine Kinase 149 U/L (30-135); Creatinine Clearance Estimated 51 mL/min (50-200); Estimated Glomerular Filt Rate 83 ml/min (>60); GFR (African American) 101 ML/MIN (>60); Globulin 2.6 g/dL (1.3-3.2); Glucose 122 mg/dl (74-100); Potassium 3.7 mmoL/L (3.5-5.1); Total Protein,Serum 6.1 g/dl (6.3-8.2)
[2023-07-26 02:38] LABS: INR 1.03 (0.9-1.1); Prothrombin Time 11.1 seconds (10.1-12.5)
[2023-07-26 02:40] LABS: Anion Gap 7.7 mEq/L (5-15); Sodium 133 mmol/L (136-145)
[2023-07-26] MEDS: 0.9 % SODIUM CHLORIDE 1000ML 1,000 ML 999 ML IV (02:42)
[2023-07-26] MEDS: ACETAMINOPHEN 500MG TAB 1000 MG PO (02:44)
--- NOTE | 2023-07-26 02:45 | PC.NURSE ---
Patient to CT at 0240
[2023-07-26 02:49] LABS: Troponin I < 0.01 ng/ml (0.00-0.034)
[2023-07-26 02:55] LABS: Lymphocytes % 7 % (10-50); Microcytosis 2+; Monocytes % 3 % (2-9); Neutrophils % 90 % (42-76); Platelet Estimate Normal; Total Cells Counted 100
[2023-07-26 03:15] VITALS: BP 124/73; PULSE 69; RESP 17; O2SAT 97
[2023-07-26] MEDS: MORPHINE 4MG/ML SYRINGE 4 MG IV (03:16)
[2023-07-26] MEDS: SODIUM CHLORIDE 0.9% 10ML SYR (RAD ONLY) 10 ML IV (03:21)
[2023-07-26] MEDS: IOPAMIDOL-370 (76%);100ML BOTTLE 150 ML IV (03:21)
--- NOTE | 2023-07-26 03:21 | PC.NURSE ---
Patient back from CT at 0274
--- NOTE | 2023-07-26 03:43 | XR_ITS ---
PROCEDURE INFORMATION: Exam: XR Left Hand Exam date and time: 07/26/2023 3:42 AM Age: 67 years old Clinical indication: Pain; Hand; Left; Additional info: Hand pain fall TECHNIQUE: Imaging protocol: Radiologic exam of the left hand. Views: 3 or more views. COMPARISON: No relevant prior studies available. FINDINGS: Bones/joints: Arthritic changes noted at the base of the 1st metacarpal as well as the distal interphalangeal joints. Soft tissues: Normal. IMPRESSION: No evidence for acute fracture the left hand.
--- NOTE | 2023-07-26 03:43 | XR_ITS ---
PROCEDURE INFORMATION: Exam: XR Right Hand Exam date and time: 07/26/2023 3:42 AM Age: 67 years old Clinical indication: Pain; Hand; Right; Additional info: Hand pain, fall TECHNIQUE: Imaging protocol: Radiologic exam of the right hand. Views: 3 or more views. COMPARISON: No relevant prior studies available. FINDINGS: Bones/joints: There is no evidence for acute fracture or dislocation. Overall bone mineralization is within normal limits. Interphalangeal osteoarthritis is noted as well as degenerative change at the base of the 1st metacarpal. Soft tissues: Normal. IMPRESSION: Degenerative change in the right hand.
--- NOTE | 2023-07-26 03:55 | PC.NURSE ---
Contacted transfer center for transfer of patient.
[2023-07-26] MEDS: TET/DIPHTH/PERT-ADULT 0.5ML SYRINGE 0.5 ML IM (03:58)
--- NOTE | 2023-07-26 04:15 | PC.NURSE ---
Dr. Lake accepting.
--- NOTE | 2023-07-26 04:29 | PC.NURSE ---
Report called to Marcia Escalante RN at Adult ED
--- NOTE | 2023-07-26 04:45 | PC.NURSE ---
Post void residual 133 ml.
--- NOTE | 2023-07-26 04:53 | PC.NURSE ---
EMS notified for transfer
--- NOTE | 2023-07-26 05:07 | PC.NURSE ---
EMS here for transport
[2023-07-26 05:09] VITALS: BP 126/74; PULSE 64; RESP 16; TEMP 36.6; O2SAT 98
== END 2023-07-26 05:10 | disposition other institution (70) ==
PROVIDERS: Emergency Provider Emergency Medicine; PCP Internal Medicine Adolescent Medicine
DX: S14.129A Central cord syndrome at unspecified level of cervical spinal cord, initial encounter (principal); S01.111A Laceration without foreign body of right eyelid and periocular area, initial encounter; S81.011A Laceration without foreign body, right knee, initial encounter; R19.7 Diarrhea, unspecified; W18.11XA Fall from or off toilet without subsequent striking against object, initial encounter
CPT/HCPCS: 12011; 70450; 70496; 70498; 71275; 72125; 72128; 72131; 73030; 73130; 74174; 80053; 82550; 84484; 85007; 85025; 85610; 90471; 90715; 93005; 96361; 96374; 99291; Q9967

== ENCOUNTER 2023-09-26 08:11 | Outpatient (CLI) | payer MEDICARE, OTHER, SELFPAY ==
--- NOTE | 2023-09-26 08:17 | US_ITS ---
FINAL REPORT CLINICAL HISTORY: GALLSTONES; DILATED PANCREATIC DUCT FINDINGS: Sonographic images of the right upper quadrant were obtained. The pancreas is partially obscured.The liver has an unremarkable appearance. There is a large gallstone in the gallbladder measuring 1.9 cm. There is mild gallbladder wall thickening. There is no evidence of biliary ductal dilatation.The common duct measures 4mm. Limited images of the right kidney are unremarkable. IMPRESSION: Large gallstone and mild gallbladder wall thickening. Cholecystitis is not excluded. Reviewed, Interpreted and Dictated by Sam Patel III, MD Transcribed by Tri Berry Authenticated and . [facility]
== END 2023-09-26 23:59 ==
LOC: RAD 08:12
PROVIDERS: PCP Nurse Practitioner Family; Visit Provider Nurse Practitioner Family
DX: K80.20 Calculus of gallbladder without cholecystitis without obstruction (principal); K86.89 Other specified diseases of pancreas
CPT/HCPCS: 76705

== ENCOUNTER 2023-09-30 10:34 | Outpatient (CLI) | payer MEDICARE, OTHER, SELFPAY ==
--- NOTE | 2023-09-30 10:37 | MR_ITS ---
FINAL REPORT CLINICAL HISTORY: GALLSTONES. DILATED PANCREATIC DUCT COMPARISON: None FINDINGS: Multiplanar MR imaging of the abdomen was performed without contrast. There is a small probable cyst in the right hepatic lobe measuring less than 1 cm. There is no evidence of biliary ductal dilatation. There is no evidence of biliary duct stone or stricture. There is a 1.9 cm gallstone in the gallbladder. There is no evidence of gallbladder wall thickening. Common duct measures 4 mm. There is no focal abnormality of the pancreatic duct. IMPRESSION: 1.9 cm gallstone in the gallbladder. No evidence of gallbladder wall thickening. No evidence of biliary duct stone, stricture, or ductal dilatation. Small probable cyst right hepatic lobe. Reviewed, Interpreted and Dictated by Sam Patel III, MD Transcribed by Sari Eckert Authenticated and [facility]
== END 2023-09-30 23:59 ==
LOC: RAD 10:34
PROVIDERS: PCP Nurse Practitioner Family; Visit Provider Nurse Practitioner Family
DX: K86.89 Other specified diseases of pancreas (principal)
CPT/HCPCS: 74181; 76376

== ENCOUNTER 2023-10-10 10:00 | Outpatient (RCR) | payer MEDICARE, OTHER, SELFPAY | END 2023-10-10 10:05 | disposition home or self-care (01) | LOC: PT 10:00 | PROVIDERS: Visit Provider Nurse Practitioner Family | DX: M54.2 Cervicalgia (principal) | CPT/HCPCS: 20560; 20561; 97010; 97014; 97110; 97140; 97163; 97530; G0283 ==

== ENCOUNTER 2023-10-17 15:25 | Outpatient (CLI) | payer MEDICARE, OTHER, SELFPAY ==
--- NOTE | 2023-10-17 15:30 | MM_ITS ---
PROCEDURE INFORMATION: Exam: MG Bilateral Screening 3D Mammography Exam date and time: 10/17/2023 3:18 PM Age: 67 years old Clinical indication: Screening examination TECHNIQUE: Imaging protocol: Bilateral Screening tomosynthesis and 2D mammography including computer-aided detection (CAD) when performed. COMPARISON: 1. MG MM DIG SCREENING MAMM BI W/CAD 08/08/2022 10:16 AM 2. MG MM DIG SCREENING MAMM BI W/CAD 07/12/2021 10:29 AM FINDINGS: MAMMOGRAPHY: Breast composition: The breasts are heterogeneously dense, which may obscure small masses. Mass: None. Architectural distortion: None. Calcifications: No suspicious calcifications. Asymmetric density: None. Skin thickening: None. Axillary adenopathy: None. IMPRESSION: No mammographic evidence of malignancy. Annual screening is recommended unless otherwise clinically indicated. ASSESSMENT: BI-RADS Category 1: Negative
== END 2023-10-17 23:59 | disposition home or self-care (01) ==
LOC: RAD 15:26
PROVIDERS: PCP Internal Medicine Adolescent Medicine; Visit Provider Internal Medicine Adolescent Medicine
DX: Z12.31 Encounter for screening mammogram for malignant neoplasm of breast (principal)
CPT/HCPCS: 77063; 77067

== ENCOUNTER 2023-10-31 11:10 | Outpatient (CLI) | payer MEDICARE, OTHER, SELFPAY ==
[2023-10-31 11:52] LABS: Basophils # 0.1 K/mm3 (0-0.2); Basophils % 0.7 % (0.1-2.0); Eosinophils # 0.3 K/mm3 (0.0-0.4); Eosinophils % 3.4 % (0.1-12.0); Hematocrit 35.6 % (37.0-47.0); Hemoglobin 10.8 g/dL (12.2-16.2); Lymphocytes # 1.8 K/mm3 (0.7-4.5); Lymphocytes % 23.1 % (10-50); Mean Corpuscular HGB Conc 30.3 g/dL (31.8-35.4); Mean Corpuscular Hemoglobin 23.2 pg (27.0-31.2); Mean Corpuscular Volume 76.6 fl (81-99); Mean Platelet Volume 7.2 fl (7.4-10.4); Monocytes # 0.5 K/mm3 (0.1-1.0); Monocytes % 6.7 % (1.7-9.3); Neutrophils # 5.3 K/mm3 (1.8-7.8); Neutrophils % 66.1 % (37.0-80.0); Platelet Count 416 K/mm3 (142-424); Red Blood Count 4.64 M/mm3 (4.20-5.40); Red Cell Distribution Width 15.6 % (11.5-17.5)
[2023-10-31 12:08] LABS: Chloride 103 mmol/L (98-107); Potassium 4.4 mmoL/L (3.5-5.1); Sodium 138 mmol/L (136-145)
[2023-10-31 12:11] LABS: Alanine Aminotransferase 20 U/L (12-78); Albumin Level 4.4 g/dl (3.5-5.0); Albumin/Globulin Ratio 1.5 (1.1-1.8); Alkaline Phosphatase 73 U/L (38-126); Anion Gap 10.4 mEq/L (5-15); Aspartate Amino Transferase 33 U/L (14-36); Bilirubin,Total 0.4 mg/dl (0.2-1.3); Blood Urea Nitrogen 15 mg/dl (7-17); Carbon Dioxide 29 mmol/L (22.0-30.0); Estimated Glomerular Filt Rate 71 ml/min (>60); GFR (African American) 86 ML/MIN (>60); Total Protein,Serum 7.4 g/dl (6.3-8.2)
[2023-10-31 12:12] LABS: Calcium 9.8 mg/dl (8.4-10.2); Glucose 112 mg/dl (74-100)
== END 2023-10-31 23:59 | disposition home or self-care (01) ==
LOC: LAB 11:14
PROVIDERS: PCP Internal Medicine Adolescent Medicine; Visit Provider Surgery
DX: K80.20 Calculus of gallbladder without cholecystitis without obstruction (principal)
CPT/HCPCS: 36415; 80053; 85025

== ENCOUNTER 2023-11-04 07:03 | Day surgery (SDC) | payer MEDICARE, OTHER, SELFPAY ==
[2023-11-01 13:49] VITALS: BMI 21.9
[2023-11-04] VITALS (11 sets, daily range): BP systolic 116–152; BP diastolic 64–87; PULSE 22–90; RESP 16–22; TEMP 36.4–43; O2SAT 92–99; BMI 21.6
[2023-11-04] MEDS: LACTATED RINGERS 1000ML 1,000 ML 25 ML IV (07:54)
--- NOTE | 2023-11-04 08:22 | EXP.ANES.CKL ---
[facility] Disclaimer: The information contained in this section may have been updated after the patient was seen, as this information can be updated by other users. Medical History (Updated 11/04/23 @ 08:02 by Lianna Talamantes RN) History of COVID-19 Depression History of gastroesophageal reflux (GERD) Ulcer History of anemia Hiatal hernia Skin cancer Surgical History (Updated 11/04/23 @ 08:02 by Lianna Talamantes RN) H/O tubal ligation History of surgery History of tonsillectomy History of colonoscopy Family History (Updated 11/04/23 @ 08:02 by Lianna Talamantes RN) Other Cancer H/O heart bypass surgery Social History (Updated 11/04/23 @ 08:02 by Lianna Talamantes RN) Smoking Status: Never smoker alcohol intake: current alcohol intake frequency: 0-2 drinks per day substance use type: denies use current occupational status: retired Travel in the last 8 weeks: None household members: spouse housing: house current occupational exposures/hazards: No caffeine: Yes [facility] Anesthesia Checklist Patient Identification Patient Identification: Arm Band Structural Data Admitted From: Home Planned Operative Procedure/s: Laparoscopic Cholecystectomy Consent for Planned Operative Procedure(s) Verified: Yes Verified Documents: Surgical Consent and History and Physical NPO Status Verified Time NPO: 00:00 Additional verifications Anesthesia Reactions: No Hx Blood Transfusions: No Blood Transfusion Reaction: No Airway Assessment Mallampati Score:: Class II C-Spine Mobility Assessed: Yes TMJ Mobility Assessed: Yes Dentition: Good Dentition Neurological Assessment Level of Consciousness: Awake and Alert Anesthesia Plan Anesthesia Risk discussed: Yes Anesthesia Plan: Verified ASA Class: II Anesthesia Type: General
[2023-11-04] MEDS: ROPIVACAINE 0.5% 30ML VIAL 150 MG (09:07)
--- NOTE | 2023-11-04 09:36 | P.OP_ITS ---
Date of procedure: 11/04/23 Pre-op Diagnosis:: Gallstones Post-op Diagnosis:: Same Procedure performed:: Laparoscopic cholecystectomy Surgeon:: Sam Ojeda MD DIRECTOR OF HOUSING AND ENERGY SERVICES:: Zenon Escobar Anesthesia: GETImelda Estimated blood loss (mL): 15 Operative findings:: She had a significantly distended gallbladder on somewhat of a thin mesenteric pedicle. The neck of the gallbladder was somewhat twisted such that the cystic artery was anterior to the cystic duct. She had a moderate stone in the gallbladder. . Operative note:: Patient was taken to the operating room. She was given preoperative intravenous antibiotics. In the operating room she was placed in a supine position. General anesthesia was induced. Abdomen was prepped and draped in the standard surgical fashion. Subumbilical skin incision was made and while performing abdominal wall lift Veress needle was inserted. CO2 pneumoperitoneum was achieved to 15 mmHg. 11 mm optical trocar was inserted at the umbilicus. Intraperitoneal contents were visualized. She was positioned in reverse Trendelenburg left side down. A couple 5 mm trocars were inserted in the right upper abdomen. 10 mm trocar was inserted in the epigastrium. Gallbladder was identified and grasped and retracted anteriorly over the dome of the liver. The gallbladder was significantly distended. It was loosely adherent to the liver on somewhat of a peritoneal pedicle. It was immediately noted that the cystic artery was anterior to the cystic duct. Careful dissection was carried out ultimately delineating the cystic duct and cystic artery in the critical view of safety. The cystic duct was then multiply clipped and sharply divided. Cystic artery was carefully coagulated with MIGUEL ultrasonic harmonic josh and divided. However, due to its prominence a single Hemoclip was placed on the cystic artery to assure hemostasis. Gallbladder was dissected free from the liver in a retrograde fashion using MIGUEL ultrasonic harmonic josh. Gallbladder was placed within an Endo Catch retrieval device and removed from the peritoneal cavity via the umbilical trocar site which required extension of the fascial incision for delivery. Gallbladder fossa was inspected for hemostasis which was assured. Visualization of the gastroesophageal junction to assess for integrity of the previous laparoscopic hiatal hernia repair was not safely feasible. CO2 pneumoperitoneum was then evacuated. Fascia at the umbilicus was closed with multiple interrupted 0 Vicryl sutures. Anterior rectus fascia at the epigastric site was closed with a 0 Vicryl suture. Local anesthetic was infiltrated. Skin incisions were closed with 4-0 Monocryl in a subcuticular fashion. Dermabond and dressings were applied. Condition: stable Disposition: PACU Complications:: None immediately apparent
[2023-11-04] MEDS: LIDOCAINE 1% 30ML PF VIAL 30 ML (09:39)
--- NOTE | 2023-11-04 09:55 | P.PNANES_ITS ---
[facility] Anesthesia Record Part I Anesthesia Record I Intake, IV Amount: 450 Hydration: Adequate Estimated blood loss (mL): 15 Urine output (mL): 0 Blood Products used (#): none Blood Pressure: 135/64 SaO2: 99 Pulse Rate: 22 Airway Patency: Patent Respiratory Rate: 22 Temperature: 97.6 F Patient is:: Drowsy and Stable Stable to PACU at:: 09:47
[2023-11-04] MEDS: MORPHINE 2MG/ML SYRINGE 1 MG IV ×2 (10:05→10:11)
--- NOTE | 2023-11-04 10:59 | P.PNANES_ITS ---
[facility] Anesthesia Record Part II Anesthesia Record Part II Discharge Time: 10:17 Destination: Surgical Day Care (OP Surgery) PACU nurse assessment reviewed?: Yes Patient Condition:: Good Anesthesia Complications:: None Swallowing reflex intact?: Yes Airway Patency: Patent Cyanosis?: No Blood Pressure: 152/85 SaO2: 99 Respiratory Rate: 18 Pulse Rate: 81 Temperature: 98.1 F Mental Status: Alert & Oriented Pain level:: 5 Nausea and/or vomitting:: None Intake, IV Amount: 0 Hydration: Adequate
== END 2023-11-04 10:49 | disposition home or self-care (01) ==
PROVIDERS: PCP Internal Medicine Adolescent Medicine; Visit Provider Surgery
PROC: 0FT44ZZ Resection of Gallbladder, Percutaneous Endoscopic Approach (ICD-10-PCS; CPT 47562; principal; 2023-11-04 08:45)
DX: K80.20 Calculus of gallbladder without cholecystitis without obstruction (principal); K82.8 Other specified diseases of gallbladder
CPT/HCPCS: 47562; 96374; J3490; J2405

== ENCOUNTER 2024-08-07 11:57 | Outpatient (CLI) | payer MEDICARE, OTHER, SELFPAY | END 2024-08-07 23:59 | disposition home or self-care (01) | LOC: LAB.DROPOF 11:58 | PROVIDERS: PCP Internal Medicine Adolescent Medicine; Visit Provider Nurse Practitioner Family | DX: R30.0 Dysuria (principal) | CPT/HCPCS: 87086; 87088; 87186 ==

== ENCOUNTER 2024-09-18 11:02 | Outpatient (CLI) | payer MEDICARE, OTHER, SELFPAY ==
--- NOTE | 2024-09-18 11:06 | MM_ITS ---
PROCEDURE INFORMATION: Exam: MG Bilateral Screening 3D Mammography Exam date and time: 09/18/2024 11:10 AM Age: 68 years old Clinical indication: Screening examination TECHNIQUE: Imaging protocol: Bilateral Screening tomosynthesis and 2D mammography including computer-aided detection (CAD) when performed. COMPARISON: 1. MG MM DIG SCREENING MAMM BI W/CAD 10/17/2023 3:18 PM 2. MG MM DIG SCREENING MAMM BI W/CAD 08/08/2022 10:16 AM FINDINGS: MAMMOGRAPHY: Breast composition: The breasts are heterogeneously dense, which may obscure small masses. Mass: No suspicious masses. Architectural distortion: None. Calcifications: No suspicious calcifications. Asymmetric density: None. Skin thickening: None. Axillary adenopathy: None. IMPRESSION: No mammographic evidence of malignancy. Annual screening is recommended unless otherwise clinically indicated. ASSESSMENT: BI-RADS Category 1: Negative.
== END 2024-09-18 23:59 | disposition home or self-care (01) ==
LOC: RAD 11:04
PROVIDERS: PCP Internal Medicine Adolescent Medicine; Visit Provider Nurse Practitioner Family
DX: Z12.31 Encounter for screening mammogram for malignant neoplasm of breast (principal)
CPT/HCPCS: 77063; 77067